=== PATIENT | male | born 1985 | race Caucasian/White ===

== ENCOUNTER 2017-02-21 16:37 | Inpatient (IN) | payer MEDICAID ==
[~2017-02-21] VITALS: Ht 175.3 cm; Wt 106.5 kg
[2017-02-21] MEDS ORDERED: LACTULOSE SYRUP 20 GM/30 ML CUP PO PRN (17:15)
[2017-02-21] MEDS ORDERED: ONDANSETRON HCL 4 MG/2 ML VIAL IVP PRN (17:15)
[2017-02-21] MEDS ORDERED: ACETAMINOPHEN 325 MG TAB PO PRN ×2 (17:15)
[2017-02-21] MEDS ORDERED: MAGNESIUM HYDROXIDE SUSP 30 ML CUP PO PRN (17:15)
[2017-02-21] MEDS ORDERED: BISACODYL 10 MG SUPP RECTAL PRN (17:15)
[2017-02-21] MEDS ORDERED: SODIUM CHLORIDE 0.9% FLUSH 10 ML FLUSH IV FLUSH PRN (17:15)
[2017-02-21] MEDS ORDERED: MORPHINE SULFATE 4 MG/ML INJ IV PRN ×2 (17:15)
[2017-02-21] MEDS ORDERED: NALOXONE HCL 0.4 MG/ML AMP IV PRN (17:15)
[2017-02-21] MEDS ORDERED: SENNOSIDES 8.6 MG TAB PO PRN (17:15)
[2017-02-21 20:00] VITALS: BP 131/82; PULSE 96; RESP 20; TEMP 99; O2SAT 97
--- NOTE | 2017-02-21 20:34 | HHI.HP ---
[facility] [place] Phys[place] No Primary Care Physician Admission Diagnosis Diagnoses: Travel History International Travel<30 Days: No Contact w/Intl Traveler <30 Da: No Traveled to Known Affected Are: No History of Present Illness soar throat for few days fever no nausea no vomiting no dairrahe no black stool no blood stool urine none not on antibiotics trouble swallowing little trouble breathing no pmh presented to [place] ED and transferred [facility] for ent eval Review of Systems Except as stated in HPI: all other systems reviewed are Neg Past Family Social History Past Medical History none Past Surgical History eustatian tubes at 3 yo Allergies: Coded Allergies: No Known Allergies (Unverified , 02/21/17) Family History none Social History no smoking, no drinking, no drugs Physical Exam Physical Exam GENERAL: This is a well-nourished, well-developed patient, in no apparent distress. SKIN: No rashes, ecchymoses or lesions. Cool and dry. HEAD: Atraumatic. Normocephalic. No temporal or scalp tenderness. EYES: No scleral icterus. No injection or drainage. ENT: Nose without bleeding, purulent drainage or septal hematoma. difficulty opening mouth for exam, tonsilar erythema and swelling, touching each other with narrow passage way Airway patent. NECK: Trachea midline. No JVD Supple, nontender, no meningeal signs. CARDIOVASCULAR: Regular rate and rhythm without murmurs, gallops, or rubs. RESPIRATORY: Clear to auscultation. Breath sounds equal bilaterally. No wheezes , rales, or rhonchi. GASTROINTESTINAL: Abdomen soft, non-tender, nondistended. No hepato-splenomegaly , or palpable masses. No guarding. MUSCULOSKELETAL: Extremities without clubbing, cyanosis, or edema. No joint tenderness, effusion, or edema noted. No calf tenderness. NEUROLOGICAL: Awake and alert.. Motor and sensory grossly within normal limits. Normal speech. Laboratory labs from [facility] reviewed Imaging ct from [facility] personally reviewed- peritonsillar abscess Assessment and Plan Assessment and Plan Impression: Peritonisllar abscess Difficulty with speech and swallowing due to above strep negative Plan: npo iv fluids' pain control ent consulted possible drainage clinda iv q8hrs decadron ppi prophylaxis Discussed Condition With patient, RN Physician Certification 2 Midnight Certification Type: Admission for Inpatient Services Order for Inpatient Services The services are ordered in accordance with Medicare regulations or non- Medicare payer requirements, as applicable. In the case of services not specified as inpatient-only, they are appropriately provided as inpatient services in accordance with the 2-midnight benchmark. Estimated LOS (days): 2 days is the estimated time the patient will need to remain in the hospital, assuming treatment plan goals are met and no additional complications. Post-Hospital Plan: Home Javi Allen MD Feb 21, 2017 20:34
[2017-02-21] MEDS: PANTOPRAZOLE SODIUM 40 MG VIAL IV PUSH SCH (20:50)
[2017-02-21] MEDS: SODIUM CHLORIDE 0.9% FLUSH 10 ML FLUSH IV FLUSH SCH (20:50)
[2017-02-21 21:48] VITALS: PULSE 92
[2017-02-22] VITALS (7 sets, daily range): BP systolic 113–131; BP diastolic 69–84; PULSE 81–95; RESP 17–20; TEMP 96.9–98; O2SAT 96–98
[2017-02-22] MEDS: CLINDAMYCIN INJ 900 MG in SODIUM CHLORIDE 0.9% INJ 100 ML IV SCH ×3 (00:10→16:20)
[2017-02-22] MEDS: DEXAMETHASONE SOD PHOS 20 MG/5 ML VIAL IV PUSH SCH ×3 (00:10→16:21)
[2017-02-22 05:56] LABS: AUTOMATED NEUTROPHIL # 12.6 TH/MM3 (1.8-7.7); BASOPHIL % 0.3 % (0.0-2.0); HEMATOCRIT 40.8 % (39.0-51.0); HEMO FLAGS DIFF FINAL; LYMPH % 5.5 % (9.0-44.0); LYMPHOCYTE # 0.8 TH/MM3 (1.0-4.8); MEAN CELL VOLUME 86.1 FL (80.0-100.0); MEAN CORPUSCULAR HEMOGLOBIN 28.2 PG (27.0-34.0); MEAN CORPUSCULAR HGB CONC 32.8 % (32.0-36.0); MONO % 2.5 % (0.0-8.0); NEUT % 91.7 % (16.0-70.0); PLATELET COUNT 222 TH/MM3 (150-450); RED BLOOD COUNT 4.74 MIL/MM3 (4.50-5.90); RED CELL DISTRIBUTION WIDTH 13.5 % (11.6-17.2); WHITE BLOOD COUNT 13.7 TH/MM3 (4.0-11.0)
[2017-02-22] MEDS: SODIUM CHLORIDE 0.9% FLUSH 10 ML FLUSH IV FLUSH SCH ×2 (08:31→19:51)
--- NOTE | 2017-02-22 12:16 | MB ---
cc: MIHAELA ZARCO M.D. DATE OF CONSULTATION: 02/22/2017 CHIEF COMPLAINT: Peritonsillar infection. HISTORY OF PRESENT ILLNESS The patient is a pleasant 31-year-old male with recent peritonsillar infection. He was transferred from [facility] he has suspicion for peritonsillar abscess. After speaking with the emergency room doctor yesterday we agreed to put him on high dose clindamycin as well as Decadron. The patient has been on Decadron and clindamycin since then, he notes that his pain and discomfort has gone from a 05/03 to 08/03 with significant reduction. PHYSICAL EXAMINATION: IN GENERAL: On examination, the patient has only mild bilateral lymphadenopathy. The patient says is drastically improved from prior. Also flexible fiberoptic laryngoscopy a patent airway bilaterally, however, he does have 4+ large tonsils bilaterally with induration and erythema. There is no definitive abscess noted, flexible fiberoptic examination. ASSESSMENT AND PLAN: The patient is tolerating his secretions well and not having any shortness of breath currently. Thus the patient has assessment of peritonsillar process improving. However, because of the site of tonsils and the level of inflammation that he had noted from prior CT. I recommend the patient continue the IV antibiotics with steroids for least 36 hours more, when the patient is to be discharged, I recommended he continue with 2 weeks of clindamycin as well as a Medrol Dosepak and recommend followup with ENT in 2 to 4 weeks. The patient will likely be able to be discharged by to be continued on his current tract. I recommend the patient begin with a clear liquid diet today now and full liquid diet beginning this evening. Thank you for this consultation. I recommend a follow up consultation as well. MD VIC Melton/kenya /11:56 AM /12:40 PM
--- NOTE | 2017-02-22 15:24 | HHI.PR ---
Subjective Remarks Follow-up peritonsillar abscess. Patient states that he is feeling better. Still with sore throat. No fever or chills overnight. Denies cough, dyspnea. He is able to tolerate liquid diet. Objective Vitals Vital Signs Date Time Temp Pulse Resp B/P Pulse Ox O2 Delivery O2 Flow Rate FiO2 02/22/17 14:58 84 02/22/17 12:00 98.0 93 17 115/75 96 02/22/17 08:00 97.2 89 20 120/77 97 02/22/17 04:00 97.6 81 18 113/69 97 02/22/17 00:00 96.9 86 18 115/74 96 02/21/17 21:48 92 02/21/17 20:00 99.0 96 20 131/82 97 I/O 02/21/17 02/21/17 02/21/17 02/22/17 02/22/17 02/22/17 07:00 15:00 23:00 07:00 15:00 23:00 Intake Total 0 ml 100 ml 400 ml Balance 0 ml 100 ml 400 ml Intake Oral 0 ml 0 ml 400 ml IV Total 100 ml # Voids 1 1 3 # Bowel Movements 0 0 0 Result Diagram: 02/22/17 0521 Objective Remarks General: No acute distress. Heart: Regular rate and rhythm. No murmur. Lungs: Clear to auscultation bilaterally. No wheezes, rales, or rhonchi. Breathing is nonlabored. Abdomen: Soft, nontender, nondistended. Extremities: No lower extremity edema. Psych: Alert and oriented. Procedures None Urinary Catheter: No Vascular Central Line Catheter: No A/P Problem List: (1) Peritonsillar abscess ICD Code: J36 Status: Acute Assessment and Plan 1. Peritonsillar abscess: Patient had difficulty with speech and swallowing, which has started to improve. Continue pain control, IV fluids. Appreciate ENT recommendations. Continue clindamycin, Decadron. Clear liquid diet. 2. GI prophylaxis: PPI. 3. DVT prophylaxis: ANDREY Reyes. Mat Montgomery MD Feb 22, 2017 15:24
[2017-02-22] MEDS: PANTOPRAZOLE SODIUM 40 MG VIAL IV PUSH SCH (19:50)
[2017-02-23] VITALS: BP 115/81; PULSE 89; RESP 18; TEMP 98.2; O2SAT 98
[2017-02-23] MEDS: DEXAMETHASONE SOD PHOS 20 MG/5 ML VIAL IV PUSH SCH ×4 (00:01→23:24)
[2017-02-23] MEDS: CLINDAMYCIN INJ 900 MG in SODIUM CHLORIDE 0.9% INJ 100 ML IV SCH ×4 (00:01→23:25)
[2017-02-23 04:00] VITALS: BP 125/84; PULSE 78; RESP 18; TEMP 96.6; O2SAT 97
[2017-02-23 08:00] VITALS: BP 121/83; PULSE 79; RESP 16; TEMP 96.7; O2SAT 95
[2017-02-23] MEDS: SODIUM CHLORIDE 0.9% FLUSH 10 ML FLUSH IV FLUSH SCH ×2 (08:20→21:24)
--- NOTE | 2017-02-23 10:25 | HHI.PR ---
Subjective Remarks Follow up peritonsillar abscess. Patient states that his symptoms are improving. Had an episode of difficulty breathing overnight when trying to lie down flat. No dyspnea when sitting up. Objective Vitals Vital Signs Date Time Temp Pulse Resp B/P Pulse Ox O2 Delivery O2 Flow Rate FiO2 02/23/17 08:00 96.7 79 16 121/83 95 02/23/17 04:00 96.6 78 18 125/84 97 02/23/17 00:00 98.2 89 18 115/81 98 02/22/17 20:00 97.1 95 18 131/84 97 02/22/17 20:00 91 02/22/17 16:00 97.7 83 20 119/72 98 02/22/17 14:58 84 02/22/17 12:00 98.0 93 17 115/75 96 I/O 02/22/17 02/22/17 02/22/17 02/23/17 02/23/17 02/23/17 06:59 14:59 22:59 06:59 14:59 22:59 Intake Total 100 ml 400 ml 480 ml 420 ml Balance 100 ml 400 ml 480 ml 420 ml Intake Oral 0 ml 400 ml 480 ml 320 ml IV Total 100 ml 100 ml # Voids 1 3 2 2 # Bowel Movements 0 0 0 0 Result Diagram: 02/22/17 0521 Objective Remarks General: No acute distress. HEENT: Tonsillar enlargement noted, slightly less than yesterday. Heart: Regular rate and rhythm. No murmur. Lungs: Clear to auscultation bilaterally. No wheezes, rales, or rhonchi. Breathing is nonlabored. Abdomen: Soft, nontender, nondistended. Extremities: No lower extremity edema. Psych: Alert and oriented. Procedures None Urinary Catheter: No Vascular Central Line Catheter: No A/P Problem List: (1) Peritonsillar abscess ICD Code: J36 Status: Acute Assessment and Plan 1. Peritonsillar abscess: Improving. Continue pain control, IV fluids. Appreciate ENT recommendations. Continue clindamycin, Decadron. Full liquid diet. 2. GI prophylaxis: PPI. 3. DVT prophylaxis: SCDs, ANDREY hose. Discharge Planning Possible discharge home tomorrow pending further clinical improvement. Mat Montgomery MD Feb 23, 2017 10:25
[2017-02-23 12:00] VITALS: BP 126/70; PULSE 63; RESP 16; TEMP 97.3; O2SAT 97
[2017-02-23 12:56] LABS: AUTOMATED NEUTROPHIL # 12.2 TH/MM3 (1.8-7.7); BASOPHIL % 0.2 % (0.0-2.0); HEMATOCRIT 41.9 % (39.0-51.0); LYMPH % 7.6 % (9.0-44.0); LYMPHOCYTE # 1.1 TH/MM3 (1.0-4.8); MEAN CELL VOLUME 86.9 FL (80.0-100.0); MEAN CORPUSCULAR HEMOGLOBIN 28.1 PG (27.0-34.0); MEAN CORPUSCULAR HGB CONC 32.4 % (32.0-36.0); MONO % 4.6 % (0.0-8.0); NEUT % 87.6 % (16.0-70.0); PLATELET COUNT 302 TH/MM3 (150-450); RED BLOOD COUNT 4.82 MIL/MM3 (4.50-5.90); RED CELL DISTRIBUTION WIDTH 13.6 % (11.6-17.2)
[2017-02-23 12:58] LABS: HEMO FLAGS AUTO DIFF
[2017-02-23 13:39] LABS: PLATELET ESTIMATE SMEAR NORMAL (NORMAL); PLATELET MORPHOLOGY NORMAL (NORMAL)
[2017-02-23 13:40] LABS: SCAN/DIFF AUTO DIFF CONFIRMED
[2017-02-23 16:00] VITALS: BP 126/80; PULSE 73; RESP 16; TEMP 96.7; O2SAT 98
[2017-02-23 20:00] VITALS: BP 124/80; PULSE 68; RESP 18; TEMP 96.7; O2SAT 96
[2017-02-23] MEDS: PANTOPRAZOLE SODIUM 40 MG VIAL IV PUSH SCH (21:24)
[2017-02-24] VITALS: BP 122/82; PULSE 67; RESP 18; TEMP 97.7; O2SAT 96
[2017-02-24 07:25] LABS: AUTOMATED NEUTROPHIL # 12.4 TH/MM3 (1.8-7.7); BASOPHIL % 0.3 % (0.0-2.0); HEMATOCRIT 42.3 % (39.0-51.0); LYMPH % 11.8 % (9.0-44.0); LYMPHOCYTE # 1.8 TH/MM3 (1.0-4.8); MEAN CELL VOLUME 85.6 FL (80.0-100.0); MEAN CORPUSCULAR HEMOGLOBIN 29.1 PG (27.0-34.0); MONO % 4.5 % (0.0-8.0); NEUT % 83.4 % (16.0-70.0); PLATELET COUNT 310 TH/MM3 (150-450); RED BLOOD COUNT 4.94 MIL/MM3 (4.50-5.90); RED CELL DISTRIBUTION WIDTH 13.7 % (11.6-17.2); WHITE BLOOD COUNT 14.9 TH/MM3 (4.0-11.0)
[2017-02-24 07:26] LABS: HEMO FLAGS AUTO DIFF
[2017-02-24 08:00] VITALS: BP 126/78; PULSE 69; RESP 18; TEMP 96; O2SAT 97
[2017-02-24] MEDS ORDERED: CLIN1CAP6 PO (08:53)
[2017-02-24] MEDS ORDERED: MEDR4PAK PO (08:53)
[2017-02-24] MEDS ORDERED: LACTTAB8 PO (08:53)
--- NOTE | 2017-02-24 08:53 | HHI.DCPOC ---
Discharge Care Plan Diagnosis: (1) Peritonsillar abscess Goals to Promote Your Health * To prevent worsening of your condition and complications * To maintain your health at the optimal level Directions to Meet Your Goals Take your medications as prescribed Follow your dietary instruction Follow activity as directed Keep your appointments as scheduled Take your immunizations and boosters as scheduled If your symptoms worsen call your PCP, if no PCP go to Urgent Care Center or Emergency Room Smoking is Dangerous to Your Health. Avoid second hand smoke Call the 24-hour hour crisis hotline for domestic abuse at Mat Montgomery MD Feb 24, 2017 08:53
--- NOTE | 2017-02-24 08:57 | HHI.DS ---
Discharge Summary Admission Date Feb 21, 2017 at 19:31 Discharge Date: Feb 24, 2017 Admitting Diagnosis Peritonsillar abscess (1) Peritonsillar abscess ICD Code: J36 Procedures None Brief History - From Admission The patient presented to the [facility] ER with complaint of sore throat and difficulty swallowing. He was not having difficulty breathing. He was found to have tonsillar enlargement. CT of the neck showed likely peritonsillar abscess. CBC/BMP: 02/24/17 0639 Significant Findings Laboratory Tests Test 02/22/17 02/23/17 02/24/17 05:21 12:16 06:39 White Blood Count 13.7 TH/MM3 14.0 TH/MM3 14.9 TH/MM3 (4.0-11.0) (4.0-11.0) (4.0-11.0) Mean Platelet Volume 6.9 FL 6.8 FL (7.0-11.0) (7.0-11.0) Neutrophils (%) (Auto) 91.7 % 87.6 % 83.4 % (16.0-70.0) (16.0-70.0) (16.0-70.0) Lymphocytes (%) (Auto) 5.5 % 7.6 % (9.0-44.0) (9.0-44.0) Neutrophils # (Auto) 12.6 TH/MM3 12.2 TH/MM3 12.4 TH/MM3 (1.8-7.7) (1.8-7.7) (1.8-7.7) Lymphocytes # (Auto) 0.8 TH/MM3 (1.0-4.8) PE at Discharge General: No acute distress. HEENT: Tonsillar enlargement continues to improve. Heart: Regular rate and rhythm. No murmur. Lungs: Clear to auscultation bilaterally. No wheezes, rales, or rhonchi. Breathing is nonlabored. Abdomen: Soft, nontender, nondistended. Extremities: No lower extremity edema. Psych: Alert and oriented. Pt update on day of discharge The patient states that he continues to feel better each day. No difficulty swallowing. No shortness of breath. Feels that he is ready to go home. Hospital Course The patient was admitted for management of peritonsillar abscess. CT showed compromise to the oropharynx secondary to significant tonsillar enlargement. He was started on IV steroids and antibiotics. ENT was consulted and recommended continuing the IV therapy for at least 2 days. The patient showed significant clinical improvement during hospitalization. His diet was advanced. He was felt to be stable for discharge home. Pt Condition on Discharge: Stable Discharge Disposition: Discharge Home Discharge Time: <= 30 minutes Discharge Instructions DIET: Follow Instructions for: Soft Diet Activities you can perform: Regular-No Restrictions Follow up Referrals: Ear Nose Throat - 2 Weeks with Sarath Roa MD New Medications: Clindamycin (Clindamycin) 300 Mg Cap 600 MG PO Q8H Infection #36 Ref 0 CAP Lactobacillus Acidophilus (Lactobacillus Acidophilus) 1 Tab Tab 1 TAB PO TIDAC Nutritional Supplement #36 Ref 0 TAB Methylprednisolone Dosepak (Medrol Dosepak) 4 Mg Dspk 4 MG PO DIRECTED Per Pharmacist direction #1 Ref 0 DSPK Mat Montgomery MD Feb 24, 2017 08:57
[2017-02-24] MEDS: CLINDAMYCIN INJ 900 MG in SODIUM CHLORIDE 0.9% INJ 100 ML IV SCH (09:16)
[2017-02-24] MEDS: SODIUM CHLORIDE 0.9% FLUSH 10 ML FLUSH IV FLUSH SCH (09:17)
[2017-02-24] MEDS: DEXAMETHASONE SOD PHOS 20 MG/5 ML VIAL IV PUSH SCH (09:17)
[2017-02-24 09:37] LABS: BANDS 2 % (0-6)
[2017-02-24 09:39] LABS: METAMYELOCYTES 1 % (0-1); MYELOCYTES 2 % (0-0); NEUTROPHIL # MANUAL DIFF 12.8 TH/MM3 (1.8-7.7); POLYS (SEG NEUTROPHILS) 80 % (16-70); PROMYELOCYTES 1 % (0-0); WBC DIFF SAMPLE 100
[2017-02-24 09:40] LABS: PLATELET ESTIMATE SMEAR NORMAL (NORMAL); PLATELET MORPHOLOGY NORMAL (NORMAL)
[2017-02-24 11:26] LABS: SCAN/DIFF FINAL DIFF MANUAL
== END 2017-02-24 12:47 | disposition home or self-care (01) | DRG 153 ==
LOC: NEDDLT 19:30 → N07B 19:31
PROVIDERS: ADMIT Family Medicine; ATTEND Family Medicine
PROC: 0CJS8ZZ Inspection of Larynx, Via Natural or Artificial Opening Endoscopic (ICD-10-PCS; principal; 2017-02-22)
DX: J36 Peritonsillar abscess (principal); R13.10 Dysphagia, unspecified
CPT/HCPCS: 70491; 80053; 83605; 85007; 85025; 85027; 86308; 87040; 87081; 87880; C9113; J1100; J1885; J7030; Q9967

== ENCOUNTER 2017-02-27 12:59 | Emergency (ER) | payer MEDICAID ==
[~2017-02-27] VITALS: Ht 175.3 cm; Wt 105.0 kg
[~2017-02-27 12:59] MED LIST: CLIN1CAP6 PO; LACTTAB8 PO; MEDR4PAK PO
[2017-02-27 13:37] VITALS: BP 132/77; PULSE 78; RESP 15; TEMP 98; O2SAT 98
--- NOTE | 2017-02-27 13:57 | RADRPT ---
EXAM DATE/TIME: 02/27/2017 13:12 [place] COMPARISON: No previous studies available for comparison. INDICATIONS : Right leg swelling and pain. MEDICAL HISTORY : Right leg pain. Right leg swelling. SURGICAL HISTORY : Tubes put in ears. ENCOUNTER: Initial ACUITY: 2 day PAIN SCORE: 7/10 LOCATION: Right leg. TECHNIQUE: Venous ultrasound of the leg was performed from the inguinal ligament to the proximal calf. Real-jake e, color Doppler and spectral tracing, compression and augmentation techniques were used. FINDINGS: Nonocclusive thrombus seen in the mid and distal superficial femoral vein and extending into the popl iteal vein. Below the knee there is occlusive thrombus in the peroneal and posterior tibial veins.. CONCLUSION: Right lower extremity DVT as above. Enrique Denny MD on February 27, 2017 at 13:53 Board Certified Radiologist. This report was verified electronically.
[2017-02-27] MEDS ORDERED: APIX5TAB PO (14:02)
--- NOTE | 2017-02-27 14:13 | PD ---
HPI Chief Complaint: Medical Clearance Time Seen by Provider: 14:09 Travel History International Travel<30 days: No Contact w/Intl Traveler<30days: No Traveled to known affect area: No History of Present Illness HPI 31-year-old male that presents to the ED for evaluation of possible DVT to the right leg. Patient was seen at the [facility] ER and was transferred here for ultrasound. Patient had a positive d-dimer. He denies any chest pain or shortness of breath. He was given Lovenox before coming here to anticoagulate him. Patient had blood work that was essentially unremarkable other than for elevated WBC count secondary to taking steroids. Patient here mainly for ultrasound. He voices no pain. No other complaints. PFSH Past Medical History Cancer: No Cardiovascular Problems: No Endocrine: No Gastrointestinal Disorders: No Genitourinary: No Immune Disorder: No Implanted Vascular Access Dvce: No Medical other: Yes (peritonsilar abcess) Musculoskeletal: No Neurologic: No Psychiatric: No Reproductive: No Respiratory: No Influenza Vaccination: No Past Surgical History Abdominal Surgery: No Cardiac Surgery: No Ear Surgery: Yes (TUBE IN BL EAR CHILD) Endocrine Surgery: No Eye Surgery: No Genitourinary Surgery: No Gynecologic Surgery: No Neurologic Surgery: No Oral Surgery: No Thoracic Surgery: No Other Surgery: Yes Social History Alcohol Use: No Tobacco Use: No Substance Use: No Allergies-Medications (Allergen,Severity, Reaction): Coded Allergies: No Known Allergies (Unverified , 02/27/17) Reported Meds & Prescriptions Reported Meds & Active Scripts Active Eliquis (Apixaban) 5 Mg Tab 10 Mg PO BID Eliquis (Apixaban) 5 Mg Tab 5 Mg PO BID Lactobacillus Acidophilus 1 Tab Tab 1 Tab PO TIDAC Clindamycin (Clindamycin HCl) 300 Mg Cap 600 Mg PO Q8H Medrol Dosepak (Methylprednisolone) 4 Mg Dspk 4 Mg PO DIRECTED Per Pharmacist direction Review of Systems Except as stated in HPI: all other systems reviewed are Neg Physical Exam Narrative GENERAL: SKIN: Warm and dry. HEAD: Atraumatic. Normocephalic. EYES: Pupils equal and round. No scleral icterus. No injection or drainage. ENT: No nasal bleeding or discharge. Mucous membranes pink and moist. Tongue is midline. No uvula deviation. NECK: Trachea midline. No JVD. CARDIOVASCULAR: Regular rate and rhythm. No murmurs, S3, S4. RESPIRATORY: No accessory muscle use. Clear to auscultation. Breath sounds equal bilaterally. GASTROINTESTINAL: Abdomen soft, non-tender, nondistended. Hepatic and splenic margins not palpable. MUSCULOSKELETAL: Extremities without clubbing, cyanosis, or edema. No obvious deformities. Full range of motion of the upper and lower extremities bilaterally. Pupils pulses bilaterally. Patient has calf tenderness on the right leg. NEUROLOGICAL: Awake and alert. No obvious cranial nerve deficits. Motor grossly within normal limits. Five out of 5 muscle strength in the arms and legs. Normal speech. PSYCHIATRIC: Appropriate mood and affect; insight and judgment normal. Data Data Last Documented VS Vital Signs Date Time Temp Pulse Resp B/P Pulse Ox O2 Delivery O2 Flow Rate FiO2 02/27/17 13:37 98.0 78 15 132/77 98 Room Air Orders Us Leg Venous Doppler (02/27/17 ) Apixaban (Eliquis) (02/27/17 14:15) MDM Medical Decision Making Medical Screen Exam Complete: Yes Emergency Medical Condition: Yes Medical Record Reviewed: Yes Interpretation(s) Last Impressions Lower Extremity Ultrasound 02/27/17 0000 Signed Impressions: Service Date/Time: Monday, February 27, 2017 13:12 - CONCLUSION: Right lower extremity DVT as above. Enrique Denny MD Differential Diagnosis DVT versus PE versus pain Narrative Course 31-year-old male that presents to the ED for evaluation of possible DVT. Patient was properly examined and was found to have signs and symptoms consistent with DVT. Ultrasound was done. Ultrasound showed DVT. Case discussed in my attending who recommends trial of Eliquis. Patient was given first dose here. Patient was given prescriptions for Eliquis with capri for 30 days free supply. Patient was told side effects of blood thinners including bleeding. He understands reasons to come back to the ED. Follow-up with PCP. See ED for any worsening symptoms. Diagnosis Primary Impression: DVT (deep venous thrombosis) Qualified Code: I82.4Y1 - Acute deep vein thrombosis (DVT) of proximal vein of right lower extremity Patient Instructions: General Instructions Additional Instructions: Take medication as prescribed. Follow with PCP. See ED worsening symptoms. Motrin or Tylenol for pain. Symptoms should improve in the next couple of weeks. Come to the ED if any signs of chest pain or shortness of breath develop Med/Other Pt SpecificInfo: Prescription(s) given Scripts Apixaban (Eliquis)5 Mg Tab10 Mg PO BID #14 TAB Ref 0 Prov:Quinn Albarran MD 02/27/17 Apixaban (Eliquis)5 Mg Tab5 Mg PO BID #60 TAB Ref 0 Prov:Quinn Albarran MD 02/27/17 Disposition: 01 DISCHARGE HOME Condition: Stable Chris Lopez Feb 27, 2017 14:13
[2017-02-27] MEDS ORDERED: APIXABAN 5 MG TABLET PO ONE (14:15)
== END 2017-02-27 15:10 | disposition home or self-care (01) ==
LOC: NEPC 12:59
DX: I82.4Y1 Acute embolism and thrombosis of unspecified deep veins of right proximal lower extremity (principal); Z79.01 Long term (current) use of anticoagulants
CPT/HCPCS: 80048; 85007; 85027; 85379; 93971; 96372; 99284; 99285; J1650; J1885